=== PATIENT | female | born 1995 | race Caucasian/White ===

== ENCOUNTER 2018-06-10 22:15 | Observation (INO) | payer OTHER ==
[~2018-06-10] VITALS: Ht 160 cm; Wt 93.4 kg
[2018-06-10 22:56] VITALS: BP 118/61
[2018-06-10] MEDS ORDERED: FOLI0.4T14 PO (23:02)
[2018-06-10] MEDS ORDERED: FERR134T2 PO (23:02)
[2018-06-10] MEDS ORDERED: PREN1TAB26 PO (23:02)
== END 2018-06-11 00:46 | disposition home or self-care (01) ==
LOC: 4S 22:15
PROVIDERS: ADMIT Obstetrics & Gynecology; ATTEND Obstetrics & Gynecology
DX: O21.2 Late vomiting of pregnancy (principal); O62.9 Abnormality of forces of labor, unspecified; Z3A.37 37 weeks gestation of pregnancy
CPT/HCPCS: G0378 ×2; 90686; 96360; 96361; 96372

== ENCOUNTER 2018-06-15 12:35 | Observation (INO) | payer OTHER ==
[~2018-06-15] VITALS: Ht 160 cm; Wt 93.4 kg
[~2018-06-15 12:35] MED LIST: FERR134T2 PO; FOLI0.4T14 PO; PREN1TAB26 PO
[2018-06-15] MEDS ORDERED: RINGERS SOLUTION,LACTATED 1,000 ML IV ONE (13:18)
== END 2018-06-15 14:45 | disposition home or self-care (01) ==
LOC: 4S 12:35
PROVIDERS: ADMIT Obstetrics & Gynecology; ATTEND Obstetrics & Gynecology
DX: O41.03X0 Oligohydramnios, third trimester, not applicable or unspecified (principal); Z3A.38 38 weeks gestation of pregnancy

== ENCOUNTER 2018-06-17 12:10 | Inpatient (IN) | payer OTHER ==
[~2018-06-17] VITALS: Ht 160 cm; Wt 93.4 kg
[2018-06-17] MEDS ORDERED: RINGERS SOLUTION,LACTATED 1,000 ML IV PRN (12:50)
[2018-06-17] MEDS ORDERED: OXYTOCIN 30 UNITS/LACT RINGERS 500 ML IV ONE (12:50)
[2018-06-17] MEDS ORDERED: METOCLOPRAMIDE HCL 5 MG/ML 2 ML VIAL IVP PRN (13:00)
[2018-06-17] MEDS ORDERED: CITRIC ACID/SODIUM CITRATE 30 ML SOLUTION UDCUP PO PRN (13:00)
[2018-06-17] MEDS: MISOPROSTOL 50 MCG TABLET PO SCH ×3 (13:28→22:02)
[2018-06-17 13:47] LABS: BASOPHILS % (AUTO) 0.3 % (0.0-2.0); EOSINOPHILS % (AUTO) 0.6 % (1.0-6.0); HEMATOCRIT 38.6 % (36-46); HEMOGLOBIN 13.1 g/dL (12.0-16.0); LYMPHOCYTES # (AUTO) 1.8 K/uL (1.0-4.8); MEAN CORPUSCULAR HEMOGLOBIN 29.5 pg (26.0-34.0); MEAN CORPUSCULAR VOLUME 87 fL (80-100); MONOCYTES # (AUTO) 0.7 K/uL (0.1-1.0); MONOCYTES % (AUTO) 7.8 % (2.0-9.0); NEUTROPHILS # (AUTO) 6.5 K/uL (1.8-7.7); NEUTROPHILS % (AUTO) 71.3 % (40.0-70.0); PLATELET COUNT (AUTO) 233 K/uL (150-450); RED BLOOD CELL COUNT(AUTO) 4.45 MIL/uL (4.00-5.20); RED CELL DISTRIBUTION WIDTH 14.5 % (11.5-14.5)
[2018-06-17 14:47] VITALS: BP 120/72
[2018-06-17] MEDS: RINGERS SOLUTION,LACTATED 1,000 ML IV SCH ×2 (14:51→22:01)
[2018-06-17] MEDS ORDERED: OXYGEN THERAPY IH SCH (20:00)
[2018-06-17] MEDS ORDERED: OXYTOCIN 30 UNITS/LACT RINGERS 500 ML IV PRN (22:22)
[2018-06-18] MEDS: RINGERS SOLUTION,LACTATED 1,000 ML IV SCH ×2 (09:03→18:52)
[2018-06-18] MEDS: FentaNYL CITRATE-PF 100 MCG/2 ML VIAL IVP PRN ×2 (11:34→12:33)
[2018-06-18] MEDS ORDERED: ROPIVACAINE HCL/PF 0.2% 100 ML ED ONE (13:50)
[2018-06-18] MEDS ORDERED: ROPIVACAINE HCL/PF 0.2% 100 ML ED PRN (14:30)
[2018-06-18] MEDS ORDERED: ONDANSETRON HCL 4 MG/2 ML VIAL IVP PRN (14:30)
[2018-06-18] MEDS ORDERED: DiphenhydrAMINE HCL 50 MG/ML VIAL IVP PRN (14:30)
[2018-06-18] MEDS ORDERED: MISOPROSTOL 100 MCG TABLET ONE (22:07)
[2018-06-18] MEDS ORDERED: OXYTOCIN 30 UNITS/LACT RINGERS 500 ML IV ONE (22:17)
[2018-06-19] MEDS ORDERED: ACETAMINOPHEN 325 MG TABLET PO ONE (00:30)
[2018-06-19] MEDS: RINGERS SOLUTION,LACTATED 1,000 ML IV SCH ×3 (00:55→22:06)
[2018-06-19] MEDS: AMPICILLIN SODIUM 2 GM/NS 100 ML IV SCH ×4 (00:55→20:45)
[2018-06-19] MEDS: GENTAMICIN SULFATE IV SCH (01:00)
[2018-06-19] MEDS: WATER IV SCH (01:00)
[2018-06-19] MEDS: DEXTROSE 5% IV SCH (01:00)
[2018-06-19] MEDS ORDERED: ACETAMINOPHEN 500 MG/ISO-OSM 50 ML IV SCH (01:30)
[2018-06-19] MEDS ORDERED: CLINDAMYCIN 900 MG/D5% WATER 50 ML IV ONE ×2 (03:40→03:45)
[2018-06-19] MEDS ORDERED: ACETAMINOPHEN 1000 MG/ISO-OSM 100 ML IV ONE (04:00)
[2018-06-19] MEDS ORDERED: GUM MASTIC/STORAX/MSAL/ALCOHOL LIQUID 0.67 ML VIAL TP ONE (04:08)
[2018-06-19] MEDS ORDERED: FentaNYL CITRATE-PF 100 MCG/2 ML VIAL IVP PRN ×2 (04:45)
[2018-06-19] MEDS ORDERED: OxyCODONE HCL/ACETAMINOPHEN 10-325 MG TABLET PO PRN (04:45)
[2018-06-19] MEDS ORDERED: ONDANSETRON HCL 4 MG/2 ML VIAL IVP PRN (04:45)
[2018-06-19] MEDS ORDERED: MEPERIDINE-PF 25 MG/ML VIAL IVP PRN (04:45)
[2018-06-19] MEDS ORDERED: HYDROmorphone 2 MG/ML SYRINGE IVP PRN ×2 (04:45)
[2018-06-19] MEDS ORDERED: DiphenhydrAMINE HCL 50 MG/ML VIAL IVP PRN (04:45)
[2018-06-19] MEDS ORDERED: NALOXONE HCL 0.4 MG/ML VIAL IVP PRN (04:45)
[2018-06-19] MEDS ORDERED: [UNRECOGNIZED DRUG - OTHER] IV ONE (07:00)
[2018-06-19] MEDS ORDERED: AMPICILLIN SODIUM IV ONE (07:00)
[2018-06-19] MEDS ORDERED: CEFTAZIDIME PENTAHYDRATE IV ONE (07:00)
[2018-06-19] MEDS ORDERED: OXYTOCIN 30 UNITS/LACT RINGERS 500 ML IV ONE (07:15)
[2018-06-19] MEDS ORDERED: OxyCODONE HCL/ACETAMINOPHEN 5-325 MG TABLET PO PRN ×2 (07:15)
[2018-06-19] MEDS ORDERED: LANOLIN 7 GM OINTMENT TP PRN (07:15)
[2018-06-19] MEDS ORDERED: CLINDAMYCIN 900 MG/D5% WATER 50 ML IV SCH (07:15)
[2018-06-19] MEDS ORDERED: METHYLERGONOVINE MALEATE 0.2 MG/ML VIAL ONE (07:24)
[2018-06-19] MEDS: ACETAMINOPHEN 500 MG TABLET PO SCH ×3 (10:09→22:07)
[2018-06-19] MEDS ORDERED: KETOROLAC TROMETHAMINE 60 MG/2 ML VIAL IM ONE (12:00)
[2018-06-19] MEDS ORDERED: LIDOCAINE/PF 2% 5 ML VIAL INJ ONE (12:00)
[2018-06-19] MEDS ORDERED: EPHEDrine SULFATE 50 MG/ML VIAL IVP ONE (12:00)
[2018-06-19] MEDS ORDERED: OXYTOCIN 10 UNITS/ML VIAL IM ONE (12:00)
[2018-06-19] MEDS ORDERED: FentaNYL CITRATE-PF 100 MCG/2 ML VIAL IVP ONE (12:00)
[2018-06-19] MEDS ORDERED: MORPHINE SULFATE/PF 0.5 MG/ML 10 ML AMP IVP ONE (12:00)
[2018-06-19] MEDS ORDERED: ONDANSETRON HCL 4 MG/2 ML VIAL IVP ONE (12:00)
[2018-06-19] MEDS: CLINDAMYCIN 900 MG/D5% WATER 50 ML IV SCH ×2 (12:05→22:06)
[2018-06-19] MEDS: KETOROLAC TROMETHAMINE 15 MG/ML VIAL IVP SCH ×2 (13:07→18:58)
[2018-06-19] MEDS: MAGNESIUM HYDROXIDE SUSPENSION 30 ML UDCUP PO SCH ×2 (21:00→22:07)
[2018-06-20] MEDS: GENTAMICIN SULFATE IV SCH (01:59)
[2018-06-20] MEDS: DEXTROSE 5% IV SCH (01:59)
[2018-06-20] MEDS: WATER IV SCH (01:59)
[2018-06-20] MEDS: ACETAMINOPHEN 500 MG TABLET PO SCH (04:15)
[2018-06-20 07:06] LABS: BASOPHILS % (AUTO) 0.3 % (0.0-2.0); EOSINOPHILS % (AUTO) 0.2 % (1.0-6.0); HEMATOCRIT 27.9 % (36-46); HEMOGLOBIN 9.4 g/dL (12.0-16.0); LYMPHOCYTES # (AUTO) 1.7 K/uL (1.0-4.8); LYMPHOCYTES % (AUTO) 8.8 % (22.0-44.0); MEAN CORPUSCULAR HEMOGLOBIN 29.3 pg (26.0-34.0); MEAN CORPUSCULAR HGB CONC 33.8 G/dL (31.0-37.0); MEAN CORPUSCULAR VOLUME 87 fL (80-100); MONOCYTES # (AUTO) 0.9 K/uL (0.1-1.0); MONOCYTES % (AUTO) 4.8 % (2.0-9.0); NEUTROPHILS # (AUTO) 16.7 K/uL (1.8-7.7); PLATELET COUNT (AUTO)-OB 168 K/uL (150-450); RED BLOOD CELL COUNT(AUTO) 3.22 MIL/uL (4.00-5.20); RED CELL DISTRIBUTION WIDTH 14.5 % (11.5-14.5)
[2018-06-20 07:10] LABS: NEUTROPHILS % (AUTO) 85.9 % (40.0-70.0)
[2018-06-20] MEDS: AMPICILLIN SODIUM 2 GM/NS 100 ML IV SCH (07:16)
[2018-06-20] MEDS: IBUPROFEN 800 MG TABLET PO PRN ×2 (09:20→16:18)
[2018-06-20] MEDS: CLINDAMYCIN HCL 300 MG CAPSULE PO SCH ×3 (09:20→22:03)
[2018-06-21] MEDS: IBUPROFEN 800 MG TABLET PO PRN ×3 (02:09→15:39)
[2018-06-21 05:53] LABS: BASOPHILS % (AUTO) 0.1 % (0.0-2.0); EOSINOPHILS % (AUTO) 0.4 % (1.0-6.0); HEMATOCRIT 29.2 % (36-46); HEMOGLOBIN 9.8 g/dL (12.0-16.0); LYMPHOCYTES # (AUTO) 1.5 K/uL (1.0-4.8); LYMPHOCYTES % (AUTO) 9.4 % (22.0-44.0); MEAN CORPUSCULAR HEMOGLOBIN 29.2 pg (26.0-34.0); MEAN CORPUSCULAR HGB CONC 33.7 G/dL (31.0-37.0); MEAN CORPUSCULAR VOLUME 87 fL (80-100); MONOCYTES # (AUTO) 0.5 K/uL (0.1-1.0); MONOCYTES % (AUTO) 3.4 % (2.0-9.0); NEUTROPHILS # (AUTO) 13.8 K/uL (1.8-7.7); PLATELET COUNT (AUTO)-OB 213 K/uL (150-450); RED BLOOD CELL COUNT(AUTO) 3.37 MIL/uL (4.00-5.20); RED CELL DISTRIBUTION WIDTH 14.6 % (11.5-14.5)
[2018-06-21 05:54] LABS: NEUTROPHILS % (AUTO) 86.7 % (40.0-70.0)
[2018-06-21] MEDS: MAGNESIUM HYDROXIDE SUSPENSION 30 ML UDCUP PO SCH (07:34)
[2018-06-21] MEDS: CLINDAMYCIN HCL 300 MG CAPSULE PO SCH ×2 (08:49→17:36)
[2018-06-21] MEDS ORDERED: CLIN300C3 PO (09:01)
[2018-06-21] MEDS ORDERED: IBUP-2071 PO (10:00)
[2018-06-21] MEDS ORDERED: DSS100 PO (10:01)
[2018-06-21] MEDS ORDERED: FERR-89 PO (10:02)
== END 2018-06-21 19:45 | disposition home or self-care (01) | DRG 787 ==
LOC: OBSVTOIN 12:10 → 4S 12:10
PROVIDERS: ADMIT Obstetrics & Gynecology; ATTEND Obstetrics & Gynecology
PROC: 10D00Z1 Extraction of Products of Conception, Low, Open Approach (ICD-10-PCS; principal; 2018-06-19)
DX: O62.2 Other uterine inertia (principal); O41.03X0 Oligohydramnios, third trimester, not applicable or unspecified; O69.81X0 Labor and delivery complicated by cord around neck, without compression, not applicable or unspecified; O77.0 Labor and delivery complicated by meconium in amniotic fluid; Z3A.39 39 weeks gestation of pregnancy; Z37.0 Single live birth
CPT/HCPCS: 86850; 86900; 86901; 86920; J0131; J0290; J0713; J1580; J1885; J2210; J2274; J2405; J2590; J2765; J2795; J3010; J3490; J7050; J7060; J7120